=== PATIENT | male | born 1985 | race Caucasian/White ===

== ENCOUNTER 2020-06-23 16:23 | Emergency (ER) | payer OTHER, BC ==
[~2020-06-23] VITALS: Ht 177.8 cm; Wt 120.2 kg
[2020-06-23 17:12] VITALS: BP 146/96
== END 2020-06-23 17:13 | disposition home or self-care (01) ==
LOC: M.ERS 16:23
DX: M54.9 Dorsalgia, unspecified (principal); M54.2 Cervicalgia; M25.512 Pain in left shoulder; M79.602 Pain in left arm; M25.562 Pain in left knee; M25.572 Pain in left ankle and joints of left foot; H53.149 Visual discomfort, unspecified; V89.2XXA Person injured in unspecified motor-vehicle accident, traffic, initial encounter; Y93.89 Activity, other specified; Y92.89 Other specified places as the place of occurrence of the external cause; Y99.8 Other external cause status